=== PATIENT | female | born 1980 | race African-American/Black ===

== ENCOUNTER 2020-04-30 02:15 | Emergency (ER) | payer MEDICAID, OTHER ==
[~2020-04-30] VITALS: Ht 172.7 cm; Wt 59.0 kg
[2020-04-30] MEDS ORDERED: IBUPROFEN 600MG TABLET PO STA (02:44)
[2020-04-30 02:59] VITALS: BP 116/76
== END 2020-04-30 03:41 | disposition left against medical advice (07) ==
LOC: ER 02:15
DX: M25.512 Pain in left shoulder (principal); M79.622 Pain in left upper arm; Y04.0XXA Assault by unarmed brawl or fight, initial encounter; W01.0XXA Fall on same level from slipping, tripping and stumbling without subsequent striking against object, initial encounter; Y93.89 Activity, other specified; Y92.018 Other place in single-family (private) house as the place of occurrence of the external cause
CPT/HCPCS: 99283

== ENCOUNTER 2021-08-01 17:17 | Emergency (ER) | payer MEDICAID ==
[~2021-08-01] VITALS: Ht 165.1 cm; Wt 71.0 kg
[2021-08-01] MEDS ORDERED: ONDANSETRON 4MG ODT PO ONE (18:15)
[2021-08-01 20:03] VITALS: BP 137/87
== END 2021-08-01 20:04 | disposition home or self-care (01) ==
LOC: ER 17:17
DX: S09.90XA Unspecified injury of head, initial encounter (principal); R07.89 Other chest pain; V49.9XXA Car occupant (driver) (passenger) injured in unspecified traffic accident, initial encounter; Y93.89 Activity, other specified; Y92.89 Other specified places as the place of occurrence of the external cause; Y99.8 Other external cause status
CPT/HCPCS: 71045; 81025; 99284

== ENCOUNTER 2023-07-04 16:35 | Emergency (ER) | payer MEDICAID ==
[~2023-07-04] VITALS: Ht 167.6 cm; Wt 61.0 kg
[2023-07-04 16:41] VITALS: BP 111/72; PULSE 90; RESP 18; TEMP 97.9; O2SAT 100
[2023-07-04 17:27] LABS: BASOPHILS % 0.7 % (0.0-2.0); EOSINOPHILS % 1.7 % (0.0-5.0); HEMATOCRIT. 40.9 % (36.0-48.0); HEMOGLOBIN. 13.5 g/dL (12.0-16.0); MEAN CORPUSCULAR HEMOGLOBIN 30.4 pg (28.0-32.0); MEAN CORPUSCULAR HGB CONC 32.9 g/dL (31.0-37.0); MEAN CORPUSCULAR VOLUME 92.3 fL (81.0-99.0); MEAN PLATELET VOLUME 7.7 fl (7.4-10.4); NEUTROPHILS % 37.6 % (40.0-76.0); PLATELET 232 x1000/uL (130-400); RED BLOOD CELL COUNT 4.43 mill/uL (4.2-5.4); RED CELL DISTRIBUTION WIDTH 14.6 % (11.6-14.6); WHITE BLOOD COUNT 5.9 x1000/uL (4.5-11.0)
[2023-07-04 17:40] LABS: CHLORIDE 109 mEq/L (98-107); INDEX HEMOLYSI 1 (1-3); INDEX ICTERIC 1 (1-4); INDEX LIPEMIC 1 (1-3); POTASSIUM 4.2 mEq/L (3.5-5.1); SODIUM 140 mEq/L (136-145)
[2023-07-04 17:42] LABS: CLARITY URINE CLEAR (CLEAR); COLOR URINE YELLOW (YELLOW); GLUCOSE URINE NEGATIVE (NEGATIVE); KETONES URINE NEGATIVE (NEGATIVE); LEUKOCYTE ESTERASE URINE TRACE (NEGATIVE); NITRITE URINE NEGATIVE (NEGATIVE); OCCULT BLOOD URINE NEGATIVE (NEGATIVE); PROTEIN URINE 1+ (NEGATIVE); SPECIFIC GRAVITY URINE 1.005 (1.005-1.030); UROBILINOGEN URINE 0.2 E.U./dL (0.2-1.0)
[2023-07-04 17:45] LABS: BACTERIA URINE 1+; RBC URINE NONE SEEN /hpf (0-2); SQUAMOUS EPITHELIAL CELL URINE 1+ /lpf (RARE/1+); YEAST URINE NONE SEEN
[2023-07-04 17:47] LABS: ALANINE AMINOTRANSFERASE 57 IU/L (13-61); ALBUMIN 4.1 g/dL (3.4-5.0); ASPARTATE AMINOTRANSFERASE 46 IU/L (15-37); BILIRUBIN TOTAL 0.3 mg/dL (0.1-1.0); CALCIUM 8.9 mg/dL (8.5-10.1); CARBON DIOXIDE 22 mEq/L (21-32); CREATININE 0.6 mg/dL (0.6-1.3); GLUCOSE 103 mg/dL (70-105); PROTEIN TOTAL 8.2 g/dL (6.0-8.3); UREA NITROGEN BLOOD 6 mg/dL (7-21)
[2023-07-04 18:00] LABS: UCG QC LOT# 618504; UCG SCREEN NEGATIVE
[2023-07-04] MEDS ORDERED: ACETAMINOPHEN 325MG TABLET PO PRN (18:15)
[2023-07-04] MEDS ORDERED: IBUP-2028 MT (19:58)
== END 2023-07-04 20:36 | disposition home or self-care (01) ==
LOC: ER 16:53
DX: R10.2 Pelvic and perineal pain (principal)
CPT/HCPCS: 36415; 76830; 76856; 80053; 81003; 81025; 85025; 99284

== ENCOUNTER 2024-11-02 14:20 | Emergency (ER) | payer MEDICAID ==
[~2024-11-02] VITALS: Ht 170.2 cm; Wt 63.0 kg
[~2024-11-02 14:20] MED LIST: IBUP-2028 MT
[2024-11-02 14:25] VITALS: O2SAT 100
[2024-11-02] MEDS: SODIUM CHLORIDE 0.9% 1,000 ML IV ONE (14:43)
[2024-11-02] MEDS: LEVETIRACETAM 1000MG PREMIX 100 ML IV ONE (14:43)
[2024-11-02 15:02] LABS: BASOPHILS % 2.3 % (0.0-2.0); EOSINOPHILS % 0.9 % (0.0-5.0); HEMATOCRIT. 36.9 % (36.0-48.0); LYMPHOCYTES % 44.2 % (20.0-50.0); MEAN CORPUSCULAR HEMOGLOBIN 29.3 pg (28.0-32.0); MEAN CORPUSCULAR HGB CONC 32.5 g/dL (31.0-37.0); MEAN PLATELET VOLUME 7.9 fl (7.4-10.4); MONOCYTES % 8.9 % (2.0-8.0); NEUTROPHILS % 43.7 % (40.0-76.0); PLATELET 421 x1000/uL (130-400); RED CELL DISTRIBUTION WIDTH 14.2 % (11.6-14.6); WHITE BLOOD COUNT 6.9 x1000/uL (4.5-11.0)
[2024-11-02 15:08] LABS: CHLORIDE 111 mEq/L (98-107); POTASSIUM 3.3 mEq/L (3.5-5.1); SODIUM 143 mEq/L (136-145)
[2024-11-02 15:09] LABS: CALCIUM 8.9 mg/dL (8.7-10.4); CARBON DIOXIDE 22 mEq/L (21-32)
[2024-11-02 15:12] LABS: PROTHROMBIN TIME 10.9 sec (9.6-11.0)
[2024-11-02 15:14] LABS: CREATININE 0.6 mg/dL (0.6-1.0); GLUCOSE 94 mg/dL (70-105); UREA NITROGEN BLOOD 7 mg/dL (9-23)
[2024-11-02] MEDS ORDERED: KEPP500 MT (18:27)
[2024-11-02] MEDS: POTASSIUM CHLORIDE 20MEQ TABLET SR PO NR (18:43)
[2024-11-02 18:50] VITALS: BP 110/65; PULSE 75; RESP 17; TEMP 37.11408; O2SAT 100
== END 2024-11-02 18:50 | disposition home or self-care (01) ==
LOC: ER 14:20
DX: R56.9 Unspecified convulsions (principal); R10.2 Pelvic and perineal pain; F19.90 Other psychoactive substance use, unspecified, uncomplicated
CPT/HCPCS: 80048; 84702; 85025; 85610; 36415; 76856; 93005; 96365; 96366; 99285; J1953; J7030; Z7610

== ENCOUNTER 2025-02-17 16:06 | Emergency (ER) | payer MEDICAID, OTHER ==
[~2025-02-17] VITALS: Ht 157.5 cm; Wt 70.0 kg
[~2025-02-17 16:06] MED LIST changes: +KEPP500 MT
[2025-02-17 16:08] VITALS: BP 124/91; PULSE 107; RESP 18; TEMP 36.8; O2SAT 99
[2025-02-17 17:25] LABS: BASOPHILS % 0.4 % (0.0-2.0); EOSINOPHILS % 0.6 % (0.0-5.0); HEMATOCRIT. 39.3 % (36.0-48.0); HEMOGLOBIN. 12.7 g/dL (12.0-16.0); LYMPHOCYTES % 28.6 % (20.0-50.0); MEAN CORPUSCULAR HEMOGLOBIN 28.3 pg (28.0-32.0); MEAN CORPUSCULAR HGB CONC 32.2 g/dL (31.0-37.0); MEAN CORPUSCULAR VOLUME 87.8 fL (81.0-99.0); MEAN PLATELET VOLUME 7.2 fl (7.4-10.4); MONOCYTES % 6.7 % (2.0-8.0); NEUTROPHILS % 63.7 % (40.0-76.0); PLATELET 312 x1000/uL (130-400); RED BLOOD CELL COUNT 4.47 mill/uL (4.2-5.4); RED CELL DISTRIBUTION WIDTH 14.4 % (11.6-14.6); WHITE BLOOD COUNT 9.5 x1000/uL (4.5-11.0)
[2025-02-17 17:26] LABS: CHLORIDE 107 mEq/L (98-107); POTASSIUM 4.3 mEq/L (3.5-5.1); SODIUM 143 mEq/L (136-145)
[2025-02-17 17:27] LABS: CARBON DIOXIDE 25 mEq/L (21-32)
[2025-02-17 17:32] LABS: CREATININE 0.6 mg/dL (0.6-1.0); GLUCOSE 113 mg/dL (70-105); UREA NITROGEN BLOOD 7 mg/dL (9-23)
[2025-02-17 17:34] LABS: TROPONIN I HIGH SENSITIVITY < 4 ng/L (3.0-34)
== END 2025-02-17 18:31 | disposition home or self-care (01) ==
LOC: ER 16:06 → CANBEDREQ 17:18 → ER 18:31
DX: R07.89 Other chest pain (principal); F10.90 Alcohol use, unspecified, uncomplicated; Z65.3 Problems related to other legal circumstances; Z98.890 Other specified postprocedural states; Y90.9 Presence of alcohol in blood, level not specified
CPT/HCPCS: 36415; 71045; 80048; 81025; 84484; 85025; 93005; 99285

== ENCOUNTER 2025-08-14 22:40 | Emergency (ER) | payer MEDICAID, OTHER ==
[~2025-08-14] VITALS: Ht 162.6 cm; Wt 67.0 kg
[2025-08-14 22:52] VITALS: BP 138/82; PULSE 90; RESP 20; TEMP 36.7; O2SAT 99
== END 2025-08-14 23:42 | disposition left against medical advice (07) ==
LOC: ER 22:40
DX: G40.909 Epilepsy, unspecified, not intractable, without status epilepticus (principal); F12.90 Cannabis use, unspecified, uncomplicated; F19.90 Other psychoactive substance use, unspecified, uncomplicated
CPT/HCPCS: 99283

== ENCOUNTER 2025-08-17 00:18 | Emergency (ER) | payer MEDICAID ==
[~2025-08-17] VITALS: Ht 167.6 cm; Wt 82.0 kg
[2025-08-17 00:32] VITALS: BP 146/84; PULSE 110; RESP 24; TEMP 36.8; O2SAT 98
[2025-08-17] MEDS ORDERED: LEVETIRACETAM 500MG PREMIX 100 ML IV ONE (00:45)
== END 2025-08-17 00:53 | disposition home or self-care (01) ==
LOC: ER 00:43
DX: G40.909 Epilepsy, unspecified, not intractable, without status epilepticus (principal); F10.90 Alcohol use, unspecified, uncomplicated; F19.90 Other psychoactive substance use, unspecified, uncomplicated; Y90.9 Presence of alcohol in blood, level not specified
CPT/HCPCS: 99283

== ENCOUNTER 2025-08-17 01:34 | Emergency (ER) | payer MEDICAID ==
[~2025-08-17] VITALS: Ht 167.6 cm; Wt 83.0 kg
[2025-08-17 01:40] VITALS: O2SAT 100
[2025-08-17 01:47] VITALS: BP 137/88; PULSE 89; RESP 13; TEMP 36.9; O2SAT 99
[2025-08-17] MEDS ORDERED: LEVETIRACETAM 500MG PREMIX 100 ML IV ONE (02:00)
== END 2025-08-17 02:10 | disposition left against medical advice (07) ==
LOC: ER 01:34
DX: R56.9 Unspecified convulsions (principal)
CPT/HCPCS: 93005; 99283; Z7610; A4606